=== PATIENT | female | born 1975 | race Caucasian/White ===

== ENCOUNTER 2020-11-16 09:56 | Emergency (ER) | payer OTHER ==
[2020-11-16 10:13] VITALS: TEMP 98; BMI 36.6
[2020-11-16] MEDS ORDERED: SODIUM CHLORIDE 0.9% 500 ML INFUS.BAG IV ONE (10:30)
[2020-11-16] MEDS ORDERED: KETOROLAC TROMETHAMINE 30 MG/1 ML VIAL IVPUSH ONE (10:30)
[2020-11-16] MEDS ORDERED: KETOROLAC TROMETHAMINE 30 MG/1 ML VIAL ONE (10:51)
[2020-11-16 11:03] LABS: BASO % 1.2 % (0-2.0); EOS % 2.8 % (0-4.5); HEMATOCRIT 38.4 % (32.4-45.2); HEMOGLOBIN 12.7 GM/dL (10.7-15.3); LYMPH % 27.4 % (8-40); MCH 28.9 pg (25.7-33.7); MEAN CELL VOLUME 87.4 fl (80-96); MEAN PLT VOLUME 8.1 fl (7.5-11.1); NEUT % 62.6 % (42.8-82.8); PLATELET COUNT 435 K/MM3 (134-434); RDW 13.7 % (11.6-15.6); WHITE BLOOD COUNT 9.1 K/mm3 (4.0-10.0)
[2020-11-16 11:28] LABS: CHLORIDE 108 mmol/L (98-107); POTASSIUM 3.8 mmol/L (3.5-5.1); SODIUM 139 mmol/L (136-145)
[2020-11-16 11:30] LABS: ANION GAP 4 MMOL/L (8-16); CALCIUM 8.9 mg/dL (8.5-10.1); CO2 27 mmol/L (21-32)
[2020-11-16 11:31] LABS: ALBUMIN 3.3 g/dl (3.4-5.0); BLOOD UREA NITROGEN 12.5 mg/dL (7-18); GLUCOSE,RANDOM 87 mg/dL (74-106)
[2020-11-16 11:34] LABS: CREATININE 0.6 mg/dL (0.55-1.3); SGOT/AST 6 U/L (15-37); SGPT/ALT 15 U/L (13-61)
[2020-11-16 11:35] LABS: BILIRUBIN,TOTAL 0.6 mg/dL (0.2-1); TOT PROT 7.1 g/dl (6.4-8.2)
[2020-11-16 11:37] LABS: ALK PHOS 56 U/L (45-117)
[2020-11-16 12:42] VITALS: BP 122/74; PULSE 78
== END 2020-11-16 12:54 | disposition home or self-care (01) ==
LOC: JER 09:56
PROC: 3E0333Z Introduction of Anti-inflammatory into Peripheral Vein, Percutaneous Approach (ICD-10-PCS; principal; 2020-11-16)
DX: R07.9 Chest pain, unspecified (principal)
CPT/HCPCS: 36415; 71046-TC-FY; 80053; 84484; 85025; 85379; 93005; 93010; 99284-25

== ENCOUNTER 2022-01-30 11:18 | Emergency (ER) | payer OTHER ==
[2022-01-30 11:36] VITALS: BP 129/76; PULSE 89; TEMP 97.7; BMI 42.5
[2022-01-30] MEDS ORDERED: guaiFENesin/CODEINE 10 ML UNIT-DOSE CUPS PO ONE (12:26)
[2022-01-30] MEDS ORDERED: guaiFENesin/CODEINE 5 ML UNIT-DOSE CUPS PO ONE (14:04)
== END 2022-01-30 14:10 | disposition home or self-care (01) ==
LOC: JER 11:18
DX: R09.81 Nasal congestion (principal); R05.1 Acute cough; R19.7 Diarrhea, unspecified
CPT/HCPCS: 0241U-QW; 71046-TC-FY; 99284-25

== ENCOUNTER 2022-07-15 13:09 | Emergency (ER) | payer OTHER ==
[2022-07-15 13:26] VITALS: BP 125/73; PULSE 87; RESP 18; TEMP 97.8; BMI 42.8
[2022-07-15] MEDS ORDERED: TRIAMCINOLONE ACET 40MG/1ML VIAL IJ ONE (13:45)
[2022-07-15] MEDS ORDERED: LIDOCAINE HCL 1%, 10 MG/ML (50 mL VIAL) INF ONE (13:45)
[2022-07-15] MEDS ORDERED: LIDOCAINE HCL 1%, 10 MG/ML (20ML VIAL) ONE (13:51)
== END 2022-07-15 14:50 | disposition home or self-care (01) ==
LOC: FER 13:09
PROC: 3E0U3GC Introduction of Other Therapeutic Substance into Joints, Percutaneous Approach (ICD-10-PCS; principal; 2022-07-15)
DX: M25.562 Pain in left knee (principal)
CPT/HCPCS: 99284-25